=== PATIENT | male | born 1985 | race Caucasian/White ===

== ENCOUNTER → 2021-09-28 10:18 | Outpatient (CLI) | payer OTHER, SELFPAY ==
--- NOTE | ~2021-09-28 | MR_ITS ---
EXAMINATION: MR lumbar spine wo con DATE: 09/28/2021 11:04 INDICATION: Right-sided sciatica. Spasm of right piriformis muscle. Chronic low back pain. TECHNIQUE: Magnetic resonance imaging (MRI) of the lumbar spine was performed without intravenous con trast. Sequences included sagittal T2-weighted FSE, sagittal T2-weighted FS FSE, sagittal T1-weighted FSE, and axial T2-weighted FSE. COMPARISON: None FINDINGS: Bone alignment is normal. There is mild chronic anterior wedging of T12 and L1 vertebral marysol dies. There are Schmorl's nodes from T11-T12 through L2-L3. Intervertebral disc heights are normal. T he distal spinal cord signal intensity is normal. The conus medullaris is at L1. The following disc l evels are specifically discussed: L1-L2: The disc does not extend beyond the endplate margin. There is mild bilateral facet joint osteo arthritis. There is no neural foraminal stenosis. There is no central canal stenosis. L2-L3: There is a left foraminal protrusion. There is mild bilateral facet joint osteoarthritis. Ther e is mild left neural foraminal stenosis. There is no central canal stenosis. L3-L4: The disc is mildly bulging. There is mild right facet joint osteoarthritis. There is mild bila teral neural foraminal stenosis. There is no central canal stenosis. L4-L5: There is an extrusion from the right subarticular zone to the left subarticular zone with 14 m m inferior extension to the pedicular level and mass effect on the bilateral L5 nerve roots in the la teral recesses. There is mild bilateral facet joint osteoarthritis. There is mild bilateral neural fo raminal stenosis. There is mild central canal stenosis. There is moderate stenosis of right lateral r ecess and severe stenosis of left lateral recess. L5-S1: The disc does not extend beyond the endplate margin. There is mild bilateral facet joint osteo arthritis. There is no neural foraminal stenosis. There is no central canal stenosis. IMPRESSION: 1. Extrusion at L4-L5 with mass effect on the bilateral L5 nerve roots. Reviewed, dictated and finalized at location A. 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
== END ==
PROVIDERS: PCP Emergency Medicine; Visit Provider Emergency Medicine
DX: M54.31 Sciatica, right side (principal); M62.838 Other muscle spasm; M54.50 Low back pain, unspecified; G89.29 Other chronic pain
CPT/HCPCS: 72148